=== PATIENT | male | born 1970 | race American Indian/Alaskan Native ===

== ENCOUNTER 2021-08-21 22:49 | Inpatient (IN) | payer OTHER ==
[2021-08-22] MEDS ORDERED: ONDANSETRON 4 MG/2 ML INJ IV ONE (00:53)
[2021-08-22] MEDS ORDERED: MORPHINE 4 MG/1 ML INJ IV ONE (00:53)
[2021-08-22] MEDS ORDERED: FAMOTIDINE 20 MG/2 ML INJ IV ONE (00:53)
[2021-08-22 01:06] LABS: Basophils % (Auto) 0.3 % (0.0-1.8); Eosinophils % (Auto) 0.1 % (0.0-4.3); Hematocrit 50.3 % (35.5-45.6); Hemoglobin 16.6 gm/dl (11.8-15.2); Lymphocytes # (Auto) 1.3 K/mm3 (1.2-5.4); Mean Corpuscular HGB Conc 33 % (32-34); Mean Corpuscular Volume 89 fl (84-94); Monocytes % (Auto) 7.3 % (0.0-7.3); Red Blood Count 5.65 M/mm3 (3.65-5.03); Red Cell Distribution Width 14.7 % (13.2-15.2)
[2021-08-22 01:21] LABS: Platelet Count 206 K/mm3 (140-440)
[2021-08-22 01:25] LABS: Bacteria,Urine 1+ /HPF (Negative); Bilirubin,Urine NEG (Negative); Blood,Urine NEG (Negative); Color,Urine Yellow (Yellow); Mucus,Urine 1+ /HPF; Urobilinogen,Urine < 2.0 mg/dL (<2.0); WBC,Urine < 1.0 /HPF (0.0-6.0)
[2021-08-22] MEDS ORDERED: SODIUM CHLORIDE 0.9% 1000 ML 1,000 ML IV ONE (01:29)
[2021-08-22 02:23] LABS: Alanine Aminotransferase 23 units/L (7-56); Albumin 4.4 g/dL (3.9-5); BUN/Creatinine Ratio 23; Blood Urea Nitrogen 18 mg/dL (9-20); Calcium 10.1 mg/dL (8.4-10.2); Hemolysis Index 37
[2021-08-22] MEDS ORDERED: diphenhydrAMINE 50 MG/ML VIAL IV ONE (02:23)
[2021-08-22] MEDS ORDERED: METOCLOPRAMIDE 10 MG/2 ML INJ IV ONE (02:23)
[2021-08-22] MEDS ORDERED: HYDROmorphone 1 MG/1 ML INJ IV ONE (02:23)
--- NOTE | 2021-08-22 03:57 | Cat Scan Report ---
CT ABDOMEN AND PELVIS WITH CONTRAST INDICATION / CLINICAL INFORMATION: abdominal pain. TECHNIQUE: Axial CT images were obtained through the abdomen and pelvis after 100 cc Omnipaque [address] scans at this location are performed using CT dose reduction for ALARA by means of automated exposure control. COMPARISON: None available. FINDINGS: LOWER CHEST: No significant abnormality of the imaged chest. LIVER: Subcentimeter hypodense lesion right hepatic lobe image #37 too small to further characterize. Liver otherwise unremarkable. GALLBLADDER: No significant abnormality. BILE DUCTS: No significant abnormality. SPLEEN: No significant abnormality. PANCREAS: No significant abnormality. ADRENALS: No significant abnormality. RIGHT KIDNEY / URETER: Multiple small right renal cysts. LEFT KIDNEY / URETER: Multiple left renal cysts. One to 2 mm nonobstructing stone lower pole left kid aravind not excluded. STOMACH / DUODENUM / SMALL BOWEL: Multiple small bowel loops are dilated and filled with fluid. Small bowel stool sign noted at the terminal ileum. Gradual diminution to normal caliber ileocecal valve i s present. No wall thickening and stratification is present. No inflammatory changes are demonstrated . COLON: Large callus decompressed. APPENDIX: No significant abnormality. PERITONEUM: Small amount of free fluid within the dependent pelvis. LYMPH NODES: No significant adenopathy. AORTA / ARTERIES: No significant abnormality. IVC / VEINS: No significant abnormality. URINARY BLADDER: No significant abnormality. REPRODUCTIVE ORGANS: No significant abnormality. ADDITIONAL ABDOMINAL/PELVIC FINDINGS: None. SKELETAL SYSTEM: No significant abnormality. IMPRESSION: 1. Multiple small bowel loops are borderline in size to minimally enlarged and filled with fluid with out evidence of wall thickening or inflammation. Small bowel stool sign noted within the distal/termi nal ileum also with no inflammatory changes or wall thickening. Overall appearance suggests at high-g rade partial obstruction although no true transition is identified and ileus could be considered. Signer Name: Chip Wilder II, MD Signed: 08/22/2021 3:52 AM Workstation Name: [id number]
--- NOTE | 2021-08-22 04:25 | Emergency Department Report ---
<JANE KING - Last Filed: 08/22/21 05:23> ED Abdominal Pain HPI - General Chief Complaint: Abdominal Pain Stated Complaint: ABD PAIN Source: patient Mode of arrival: Ambulatory Limitations: No Limitations - History of Present Illness Initial Comments: Patient is a 51-year-old -[place] male with no past medical history, no surgical history presents to the ED with complaint of acute onset persistent diffuse abdominal pain, worse in the lower abdomen with intractable nausea and vomiting for the last 24 hours, but worse in the last 6 hours. Patient states that the pain was initially mild and intermittent but in the last 12 hours the pain remained constant, persistent, and worsening. Patient also states that he has had multiple episodes of nausea and vomiting prior to arrival in the ED. Patient denies fever, chills, diarrhea, dysuria, urinary frequency and urgency, chest pain, shortness of breath, testicular pain, low back pain, hematuria, cough, headache or dizziness and syncope. MD Complaint: abdominal pain, other (Nausea and vomiting) -: Sudden, hour(s) (24) Location: LLQ, RLQ, suprapubic Radiation: LLQ, RLQ, suprapubic Migration to: no migration Severity scale (0 -10): 8 Quality: cramping, sharp Consistency: constant Improves With: nothing Worsens With: nothing Associated Symptoms: denies other symptoms, nausea, vomiting, anorexia. denies: diarrhea, fever, constipation, dysuria, hematemesis, hematochezia, melena, hematuria, syncope, other - Related Data Home Medications Medication Instructions Recorded Confirmed Last Taken No Known Home Medications [No 08/22/21 08/22/21 Unknown Reported Home Medications] Allergies Allergy/AdvReac Type Severity Reaction Status Date / Time No Known Allergies Allergy Verified 08/22/21 06:17 ED Review of Systems Constitutional: denies: chills, fever Eyes: denies: eye pain, eye discharge, vision change ENT: denies: ear pain, throat pain Respiratory: denies: cough, shortness of breath, wheezing Cardiovascular: denies: chest pain, palpitations Endocrine: no symptoms reported Gastrointestinal: abdominal pain, nausea, vomiting. denies: diarrhea Genitourinary: denies: urgency, dysuria Musculoskeletal: denies: back pain, joint swelling, arthralgia Skin: denies: rash, lesions Neurological: denies: headache, weakness, paresthesias Psychiatric: denies: anxiety, depression Hematological/Lymphatic: denies: easy bleeding, easy bruising ED Past Medical Hx - Past Medical History Previous Medical History?: No - Surgical History Past Surgical History?: Yes Additional Surgical History: Vericose veins removed - Social History Smoking Status: Never Smoker Substance Use Type: Marijuana - Medications Home Medications: Home Medications Medication Instructions Recorded Confirmed Last Taken Type No Known Home Medications [No 08/22/21 08/22/21 Unknown History Reported Home Medications] ED Physical Exam - General Limitations: No Limitations General appearance: alert, in no apparent distress - Head Head exam: Present: atraumatic, normocephalic, normal inspection - Eye Eye exam: Present: normal appearance, PERRL, EOMI Pupils: Present: normal accommodation - ENT ENT exam: Present: normal exam, normal orophraynx, mucous membranes moist, TM's normal bilaterally, normal external ear exam - Neck Neck exam: Present: normal inspection, full ROM. Absent: tenderness - Respiratory Respiratory exam: Present: normal lung sounds bilaterally. Absent: respiratory distress, wheezes, rales, chest wall tenderness, accessory muscle use, decreased breath sounds - Cardiovascular Cardiovascular Exam: Present: regular rate, normal rhythm, normal heart sounds. Absent: systolic murmur, diastolic murmur, rubs, gallop - GI/Abdominal GI/Abdominal exam: Present: soft, distended, tenderness (Palpable diffuse rebound lower abdominal tenderness with guarding, hyperactive bowel sounds and moderate distention in the upper abdomen with tympany.), guarding, rebound, rigid, normal bowel sounds, hyperactive bowel sounds - Extremities Exam Extremities exam: Present: normal inspection, full ROM, normal capillary refill. Absent: tenderness - Back Exam Back exam: Present: normal inspection, full ROM. Absent: tenderness, CVA tenderness (R), CVA tenderness (L), muscle spasm, paraspinal tenderness, vertebral tenderness - Neurological Exam Neurological exam: Present: alert, oriented X3, CN II-XII intact, normal gait, reflexes normal - Psychiatric Psychiatric exam: Present: normal affect, normal mood, anxious - Skin Skin exam: Present: warm, dry, intact, normal color. Absent: rash ED Medical Decision Making - Lab Data Result diagrams: 08/22/21 00:03 08/22/21 00:03 - Radiology Data Radiology results: report reviewed, image reviewed [facility] [address] [place] [address] Cat Scan Report Signed Patient: ORLIN REID MR#: [id number] : 1970 Acct:[id number] Age/Sex: 51 / M ADM Date: 08/21/21 Loc: ED Attending Dr: Ordering Physician: ANDRAE DAWSON Date of Service: 08/22/21 Procedure(s): CT abdomen pelvis w con Accession Number(s): [id number] cc: ANDRAE DAWSON CT ABDOMEN AND PELVIS WITH CONTRAST INDICATION / CLINICAL INFORMATION: abdominal pain. TECHNIQUE: Axial CT images were obtained through the abdomen and pelvis after 100 cc Omnipaque [address] scans at this location are performed using CT dose reduction for ALARA by means of automated exposure control. COMPARISON: None available. FINDINGS: LOWER CHEST: No significant abnormality of the imaged chest. LIVER: Subcentimeter hypodense lesion right hepatic lobe image #37 too small to further characterize. Liver otherwise unremarkable. GALLBLADDER: No significant abnormality. BILE DUCTS: No significant abnormality. SPLEEN: No significant abnormality. PANCREAS: No significant abnormality. ADRENALS: No significant abnormality. RIGHT KIDNEY / URETER: Multiple small right renal cysts. LEFT KIDNEY / URETER: Multiple left renal cysts. One to 2 mm nonobstructing stone lower pole left kidney not excluded. STOMACH / DUODENUM / SMALL BOWEL: Multiple small bowel loops are dilated and filled with fluid. Small bowel stool sign noted at the terminal ileum. Gradual diminution to normal caliber ileocecal valve is present. No wall thickening and stratification is present. No inflammatory changes are demonstrated. COLON: Large callus decompressed. APPENDIX: No significant abnormality. PERITONEUM: Small amount of free fluid within the dependent pelvis. LYMPH NODES: No significant adenopathy. AORTA / ARTERIES: No significant abnormality. IVC / VEINS: No significant abnormality. URINARY BLADDER: No significant abnormality. REPRODUCTIVE ORGANS: No significant abnormality. ADDITIONAL ABDOMINAL/PELVIC FINDINGS: None. SKELETAL SYSTEM: No significant abnormality. IMPRESSION: 1. Multiple small bowel loops are borderline in size to minimally enlarged and filled with fluid without evidence of wall thickening or inflammation. Small bowel stool sign noted within the distal/terminal ileum also with no inflammatory changes or wall thickening. Overall appearance suggests at high-grade partial obstruction although no true transition is identified and ileus could be considered. Signer Name: Raymond Abel II, MD Signed: 08/22/2021 3:52 AM Workstation Name: [id number] Transcribed By: MILAD Dictated By: RAYMOND ABEL II, MD Electronically Authenticated By: RAYMOND ABEL II, MD Signed Date/Time: 08/22/21351 DD/ 6 TD/TT: Print Cancel - Medical Decision Making This is a 51-year-old -[place] male with no past medical history, no surgical history presents to the ED with complaint of acute onset persistent diffuse abdominal pain, worse in the lower abdomen with intractable nausea and vomiting for the last 24 hours, but worse in the last 6 hours. Patient states that the pain was initially mild and intermittent but in the last 12 hours the pain remained constant, persistent, and worsening. Patient also states that he has had multiple episodes of nausea and vomiting prior to arrival in the ED. in the ED, patient is alert and oriented x3 and is not in any distress but appears to be in significant pain, patient crying during the physical exam and guarding his abdomen. Patient was treated with pain medications in the ED, also given antiemetics and normal saline 1 L IV bolus x1. Lab test results were reviewed and showed acute leukocytosis of 14,200 and lactic acid of 3.10. The rest of the lab test results are all nonactionable. The abdomen pelvis CT scan with contrast showed multiple small bowel loops are borderline in size to minimally enlarged and filled with fluid without evidence of wall thickening or inflammation. Small bowel stool sign noted within the distal/terminal ileum also with no inflammatory changes or wall thickening. Overall appearance suggests at high-grade partial obstruction although no true transition is identified and ileus could be considered. Patient case was discussed with the ED attending physician Dr. Smith who also evaluated the patient and agree with the plan of care. The patient care was therefore transferred to Dr. Smith who shall review all the lab test results, imaging report and disposition the patient accordingly. - Differential Diagnosis appendicitis; SBO; Kidney stones; Pancreatitis; Cholelithiasis; UTI ED Disposition Clinical Impression: Abdominal pain in male, Nausea and vomiting in adult patient, Small bowel obstruction, Abdominal pain, Partial small bowel obstruction Disposition: ADMITTED INPATIENT Is pt being admited?: Yes Condition: Stable Time of Disposition: 04:28 <COLLEEN SMITH - Last Filed: 08/23/21 05:06> ED Review of Systems ROS: Stated complaint: ABD PAIN Other details as noted in HPI ED Course Vital Signs 08/21/21 08/22/21 08/22/21 23:20 02:11 03:46 Temperature 98.1 F Pulse Rate 75 60 61 Respiratory 16 13 20 Rate Blood Pressure Blood Pressure 126/76 142/83 [Right] O2 Sat by Pulse 100 94 98 Oximetry 08/22/21 08/22/21 08/22/21 03:51 04:00 04:16 Temperature Pulse Rate 64 70 65 Respiratory 21 22 22 Rate Blood Pressure 131/89 131/89 Blood Pressure 131/89 [Right] O2 Sat by Pulse 98 96 96 Oximetry 08/22/21 08/22/21 08/22/21 04:30 04:46 05:00 Temperature Pulse Rate 64 64 68 Respiratory 19 20 18 Rate Blood Pressure 131/89 131/89 131/89 Blood Pressure [Right] O2 Sat by Pulse 97 95 97 Oximetry 08/22/21 08/22/21 08/22/21 05:16 05:30 05:46 Temperature Pulse Rate 81 67 66 Respiratory 21 21 23 Rate Blood Pressure 141/89 141/89 141/89 Blood Pressure [Right] O2 Sat by Pulse 95 96 96 Oximetry 08/22/21 08/22/21 08/22/21 05:47 06:00 06:16 Temperature Pulse Rate 64 71 69 Respiratory 20 21 22 Rate Blood Pressure 141/89 119/69 Blood Pressure 141/89 [Right] O2 Sat by Pulse 96 95 96 Oximetry 08/22/21 08/22/21 08/22/21 06:30 06:46 07:00 Temperature Pulse Rate 73 63 63 Respiratory 20 24 26 H Rate Blood Pressure 119/69 119/69 119/69 Blood Pressure [Right] O2 Sat by Pulse 97 96 96 Oximetry 08/22/21 08/22/21 08/22/21 07:16 07:30 07:46 Temperature Pulse Rate 62 63 69 Respiratory 25 H 20 20 Rate Blood Pressure 143/91 143/91 119/69 Blood Pressure [Right] O2 Sat by Pulse 96 96 95 Oximetry 08/22/21 08/22/21 08/22/21 08:01 08:15 08:31 Temperature Pulse Rate 62 59 L 60 Respiratory 23 21 16 Rate Blood Pressure 143/91 143/91 143/91 Blood Pressure [Right] O2 Sat by Pulse 95 98 94 Oximetry 08/22/21 08/22/21 08/22/21 08:41 08:45 09:01 Temperature Pulse Rate 54 L 55 L Respiratory 20 19 18 Rate Blood Pressure 143/91 130/90 Blood Pressure [Right] O2 Sat by Pulse 99 97 97 Oximetry 08/22/21 08/22/21 08/22/21 09:15 09:31 09:41 Temperature Pulse Rate 59 L 58 L 61 Respiratory 18 21 20 Rate Blood Pressure 130/90 130/90 130/90 Blood Pressure [Right] O2 Sat by Pulse 95 96 97 Oximetry 08/22/21 08/22/21 09:51 10:00 Temperature Pulse Rate 62 69 Respiratory 20 23 Rate Blood Pressure 130/90 134/92 Blood Pressure [Right] O2 Sat by Pulse 96 96 Oximetry ED Medical Decision Making - Lab Data Result diagrams: 08/22/21 00:03 08/22/21 00:03 - Medical Decision Making This patient was also seen by me. He stated that he felt somewhat better with some improvement of his abdominal pain. Palpation reveals residual abdominal pain without evidence of rebound. His white count was noted to be elevated with a shift. The CT scan of his abdomen per the radiologist reading was suggestive of a high-grade partial small bowel obstruction. I spoke with the on-call surgeon who agreed to see the patient in consultation after being admitted to the hospitalist service. The patient and his significant other were advised of this plan. And they agreed. Critical care attestation.: If time is entered above; I have spent that time in minutes in the direct care of this critically ill patient, excluding procedure time.
[2021-08-22] MEDS ORDERED: HYDROmorphone 1 MG/1 ML INJ IV PRN (06:12)
[2021-08-22] MEDS ORDERED: ALBUTEROL 2.5 MG/3 ML NEBU IH PRN (06:12)
[2021-08-22] MEDS ORDERED: ONDANSETRON 4 MG/2 ML INJ IV PRN (06:12)
[2021-08-22] MEDS ORDERED: ACETAMINOPHEN 325 MG TAB PO PRN (06:12)
--- NOTE | 2021-08-22 06:20 | History and Physical Report ---
History of Present Illness Date of examination: 08/22/21 Date of admission: 08/22/21 Chief complaint: Abdominal pain Nausea vomiting History of present illness: 51-year-old -[place] male with no significant past medical history was brought to the emergency room because of acute onset persistent diffuse abdominal pain, worse in the lower abdomen with intractable nausea and vomiting for the last 24 hours, but worse in the last 6 hours. Patient states that the pain was initially mild and intermittent but in the last 12 hours the pain remained constant, persistent, and worsening. Patient also states that he has had multiple episodes of nausea and vomiting prior to arrival in the ED. Patient denies fever, chills, diarrhea, dysuria, urinary frequency and urgency, chest pain, shortness of breath, testicular pain, low back pain, hematuria, cough, headache or dizziness and syncope. In the emergency room CT scan of the abdomen showed high-grade partial obstruction although no true transition is identified an ileus could be considered. Also patient WBC is 14.2 and lactic acid 3.10. So going to admit the patient we will put the patient on IV fluid NG suction and antibiotic surgery will see the patient in consultation Past History Past Surgical History: Other (Vericose veins removed) Social history: other (Never a smoker mom marijuana abuse) Family history: no significant family history Medications and Allergies Allergies Allergy/AdvReac Type Severity Reaction Status Date / Time No Known Allergies Allergy Verified 08/22/21 06:17 Review of Systems All systems: negative Gastrointestinal: abdominal pain, nausea, vomiting Exam - Constitutional Vitals: Temp Pulse Resp BP Pulse Ox 98.1 F 64 20 141/89 96 08/21/21 23:20 08/22/21 05:47 08/22/21 05:47 08/22/21 05:47 08/22/21 05:47 General appearance: Present: no acute distress, well-nourished - EENT Eyes: Present: PERRL ENT: hearing intact, clear oral mucosa - Neck Neck: Present: supple, normal ROM - Respiratory Respiratory effort: normal Respiratory: bilateral: diminished - Cardiovascular Heart Sounds: Present: S1 & S2. Absent: rub, click - Extremities Extremities: pulses symmetrical, No edema Peripheral Pulses: within normal limits - Abdominal General gastrointestinal: Present: soft, non-tender, non-distended, normal bowel sounds Male genitourinary: Present: normal - Integumentary Integumentary: Present: clear, warm, dry - Musculoskeletal Musculoskeletal: gait normal, strength equal bilaterally - Psychiatric Psychiatric: appropriate mood/affect, intact judgment & insight - Neurologic Neurologic: CNII-XII intact, moves all extremities Results - Labs CBC & Chem 7: 08/22/21 00:03 08/22/21 00:03 Labs: Laboratory Last Values WBC 14.2 K/mm3 (4.5-11.0) H 08/22/21 00:03 RBC 5.65 M/mm3 (3.65-5.03) H 08/22/21 00:03 Hgb 16.6 gm/dl (11.8-15.2) H 08/22/21 00:03 Hct 50.3 % (35.5-45.6) H 08/22/21 00:03 MCV 89 fl (84-94) 08/22/21 00:03 MCH 29 pg (28-32) 08/22/21 00:03 MCHC 33 % (32-34) 08/22/21 00:03 RDW 14.7 % (13.2-15.2) 08/22/21 00:03 Plt Count 206 K/mm3 (140-440) 08/22/21 00:03 Lymph % (Auto) 9.0 % (13.4-35.0) L 08/22/21 00:03 Rowan % (Auto) 7.3 % (0.0-7.3) 08/22/21 00:03 Eos % (Auto) 0.1 % (0.0-4.3) 08/22/21 00:03 Baso % (Auto) 0.3 % (0.0-1.8) 08/22/21 00:03 Lymph # (Auto) 1.3 K/mm3 (1.2-5.4) 08/22/21 00:03 Rowan # (Auto) 1.0 K/mm3 (0.0-0.8) H 08/22/21 00:03 Eos # (Auto) 0.0 K/mm3 (0.0-0.4) 08/22/21 00:03 Baso # (Auto) 0.0 K/mm3 (0.0-0.1) 08/22/21 00:03 Seg Neutrophils % 83.3 % (40.0-70.0) H 08/22/21 00:03 Seg Neutrophils # 11.8 K/mm3 (1.8-7.7) H 08/22/21 00:03 Sodium 140 mmol/L (137-145) 08/22/21 00:03 Potassium 3.7 mmol/L (3.6-5.0) 08/22/21 00:03 Chloride 101.8 mmol/L (98-107) 08/22/21 00:03 Carbon Dioxide 23 mmol/L (22-30) 08/22/21 00:03 Anion Gap 19 mmol/L 08/22/21 00:03 BUN 18 mg/dL (9-20) 08/22/21 00:03 Creatinine 0.8 mg/dL (0.8-1.3) 08/22/21 00:03 Estimated GFR > 60 ml/min 08/22/21 00:03 BUN/Creatinine Ratio 23 % 08/22/21 00:03 Glucose 136 mg/dL (75-100) H 08/22/21 00:03 Lactic Acid 2.20 mmol/L (0.7-2.0) H* 08/22/21 04:08 Calcium 10.1 mg/dL (8.4-10.2) 08/22/21 00:03 Total Bilirubin 0.70 mg/dL (0.1-1.2) 08/22/21 00:03 AST 24 units/L (5-40) 08/22/21 00:03 ALT 23 units/L (7-56) 08/22/21 00:03 Alkaline Phosphatase 87 units/L (35-129) 08/22/21 00:03 Total Protein 8.0 g/dL (6.3-8.2) 08/22/21 00:03 Albumin 4.4 g/dL (3.9-5) 08/22/21 00:03 Albumin/Globulin Ratio 1.2 % 08/22/21 00:03 Lipase 15 units/L (13-60) 08/22/21 01:29 Urine Color Yellow (Yellow) 08/22/21 Unknown Urine Turbidity Clear (Clear) 08/22/21 Unknown Urine pH 9.0 (5.0-7.0) H 08/22/21 Unknown Ur Specific [place] 1.027 (1.003-1.030) 08/22/21 Unknown Urine Protein 100 mg/dl mg/dL (Negative) 08/22/21 Unknown Urine Glucose (UA) Neg mg/dL (Negative) 08/22/21 Unknown Urine Ketones 20 mg/dL (Negative) 08/22/21 Unknown Urine Blood Neg (Negative) 08/22/21 Unknown Urine Nitrite Neg (Negative) 08/22/21 Unknown Urine Bilirubin Neg (Negative) 08/22/21 Unknown Urine Urobilinogen < 2.0 mg/dL (<2.0) 08/22/21 Unknown Ur Leukocyte Esterase Neg (Negative) 08/22/21 Unknown Urine WBC (Auto) < 1.0 /HPF (0.0-6.0) 08/22/21 Unknown Urine RBC (Auto) 27.0 /HPF (0.0-6.0) 08/22/21 Unknown U Epithel Cells (Auto) < 1.0 /HPF (0-13.0) 08/22/21 Unknown Urine Bacteria (Auto) 1+ /HPF (Negative) 08/22/21 Unknown Urine Mucus 1+ /HPF 08/22/21 Unknown - Imaging and Cardiology CT scan - abdomen: report reviewed Assessment and Plan VTE prophylaxis?: Chemical Plan of care discussed with patient/family: Yes - Patient Problems (1) Small bowel obstruction Current Visit: Yes Status: Acute Plan to address problem: Admit the patient to the medical floor. NPO. D5 half-normal saline at the rate of 100 cc/h. NG suction. Pepcid 20 mg IV every 12 hours. Surgery evaluation. (2) Lactic acidosis Current Visit: Yes Status: Acute Plan to address problem: D5 half-normal saline at the rate of 100 cc/h. Zosyn 4.5 g IV every 8 hours. Recheck CBC and lactic acid (3) Abdominal pain in male Current Visit: Yes Status: Acute Plan to address problem: Pepcid 20 mg IV every 12 hours. Morphine 2 mg IV every 4 hours as needed. Surgery evaluation (4) Nausea and vomiting in adult patient Current Visit: Yes Status: Acute Plan to address problem: n.p.o. D5 half-normal saline at the rate of 100 cc/h. Zofran 4 mg IV every 6 hours as needed. Pepcid 20 mg IV every 12 hours (5) DVT prophylaxis Current Visit: Yes Status: Acute Plan to address problem: Heparin 5000 units subcu every 12 hours for DVT prophylaxis. Pepcid 20 mg IV every 12 hours for GI prophylaxis. Patient is a full code
[2021-08-22] MEDS: PIPERACIL/TAZOBACTA 4.5/NS 100 4.5 GM/100 ML VIAL IV SCH ×2 (07:35→22:29)
[2021-08-22] MEDS ORDERED: IPRATROPIUM/ALBUTEROL SULFATE 3 ML AMPUL.NEB IH SCH (08:00)
[2021-08-22] MEDS: MORPHINE 2 MG/1 ML INJ IV PRN ×3 (08:19→20:05)
--- NOTE | 2021-08-22 10:21 | Event Note ---
Date: 08/22/21 51-year-old -[place] male patient with no past medical history was admitted through emergency room with diffuse abdominal pain with intractable nausea vomiting of 1 day duration initial work-up in the emergency room with CT scan of the abdomen show high-grade partial obstruction and leukocytosis and lactic acidosis patient was admitted placed n.p.o. status surgery consulted. Urinalysis consistent with UTI, on Zosyn On examination patient feels better, no new complaints Wants to eat, vital signs reviewed Awaiting surgery evaluation and recommendations. Continue current management We will closely monitor
[2021-08-22] MEDS: D5W/0.45% NACL 1,000 ML IV SCH (14:06)
--- NOTE | 2021-08-22 14:06 | XRay Report ---
ABDOMEN AP SUPINE 1330 INDICATION: Follow-up partial obstruction COMPARISON: CT abdomen and pelvis 08/22/2021 0316 FINDINGS: Gas is seen through much of the colon. Mild small bowel dilatation appears less obvious logan n on CT. Calcifications in the pelvis appear to be vascular. Signer Name: Miguel Gonzalez MD Signed: 08/22/2021 2:02 PM Workstation Name: [id number]
[2021-08-22] MEDS: FAMOTIDINE 20 MG/2 ML INJ IV SCH ×2 (14:07→22:31)
[2021-08-22] MEDS: HEPARIN 5,000 UNIT/1 ML VIAL SUB-Q SCH ×2 (14:07→22:31)
--- NOTE | 2021-08-22 18:53 | Consultation ---
History of Present Illness Consult date: 08/22/21 Reason for consult: abdominal pain - History of present illness History of present illness: 51 yo male with 24 hour h/o crampy, lower abdominal pain, nausea and vomiting. No prior abd surgery or h/o hernias. No melena, hematochezia or diarrhea. He has been "mildly" constipated. Since admission, his abdominal pain, nausea and vomiting have improved and he has had several loose bm's. Past History Past Surgical History: Other (Vericose veins removed) Social history: other (Never a smoker mom marijuana abuse) Family history: no significant family history Medications and Allergies Allergies Allergy/AdvReac Type Severity Reaction Status Date / Time No Known Allergies Allergy Verified 08/22/21 06:17 Active Meds: Active Medications Acetaminophen (Acetaminophen 325 Mg Tab) 650 mg PO Q4H PRN PRN Reason: Pain MILD(1-3)/Fever >100.5/MCLEOD Albuterol (Albuterol 2.5 Mg/3 Ml Nebu) 2.5 mg IH Q3HRT PRN PRN Reason: Shortness Of Breath Famotidine (Famotidine 20 Mg/2 Ml Inj) 20 mg IV BID GLENIS Last Admin: 08/22/21 14:07 Dose: 20 mg Heparin Sodium (Porcine) (Heparin 5,000 Unit/1 Ml Vial) 5,000 unit SUB-Q Q12HR GLENIS Last Admin: 08/22/21 14:07 Dose: 5,000 unit Hydromorphone HCl (Hydromorphone 1 Mg/1 Ml Inj) 0.5 mg IV Q3H PRN PRN Reason: Pain , Severe (7-10) Dextrose/Sodium Chloride (D5/0.45ns) 1,000 mls @ 100 mls/hr IV DIRECT GLENSI Last Admin: 08/22/21 14:06 Dose: 100 mls/hr Piperacillin Sod/Tazobactam Sod (Zosyn/Ns 4.5gm/100ml) 4.5 gm in 100 mls @ 200 mls/hr IV Q8H GLENIS; Protocol Last Admin: 08/22/21 07:35 Dose: 200 mls/hr Morphine Sulfate (Morphine 2 Mg/1 Ml Inj) 2 mg IV Q4H PRN PRN Reason: Pain, Moderate (4-6) Last Admin: 08/22/21 14:27 Dose: 2 mg Ondansetron HCl (Ondansetron 4 Mg/2 Ml Inj) 4 mg IV Q8H PRN PRN Reason: Nausea And Vomiting Sodium Chloride (Sodium Chloride 0.9% 10 Ml Flush Syringe) 10 ml IV BID GLENIS Last Admin: 08/22/21 14:07 Dose: 10 ml Sodium Chloride (Sodium Chloride 0.9% 10 Ml Flush Syringe) 10 ml IV PRN PRN PRN Reason: LINE FLUSH Review of Systems All systems: negative (none) Exam Vital Signs Temp Pulse Resp BP Pulse Ox 98.1 F 75 16 126/76 100 08/21/21 23:20 08/21/21 23:20 08/21/21 23:20 08/21/21 23:20 08/21/21 23:20 - General physical appearance Positive: well developed, well nourished, no distress - Eyes Positive: PERRL, normal occular movement - ENT Positive: normal pinna, normal nares, normal mucosa, no hearing loss, no congestion - Neck Positive: no masses, no bruits, trachea midline, no venous distension - Respiratory Positive: normal expansion, normal respiratory effort, clear to auscultation - Cardiovascular Rhythm: regular Heart Sounds: Present: S1 & S2. Absent: rub, click - Extremities Extremities: no ischemia, pulses symmetrical, No edema - Breasts Breasts: normal, no mass, no skin changes - Abdomen Abdomen: Present: soft, bowel sounds normal. Absent: tender, distended Hernia: none - Genitourinary Male Genitourinary: normal Female Genitourinary: normal - Integumentary no rash, no growths, no abnormal pigmentation - Neurologic Neurologic: alert and oriented to time, place and person, motor strength and sensation are grossly intact - Musculoskeletal normal gait, normal posture - Psychiatric Psychiatric: appropriate mood/affect, intact judgment & insight Results - Labs 08/22/21 00:03 08/22/21 00:03 Abnormal lab results 08/22/21 08/22/21 08/22/21 Range/Units 00:03 00:03 01:37 WBC 14.2 H (4.5-11.0) K/mm3 RBC 5.65 H (3.65-5.03) M/mm3 Hgb 16.6 H (11.8-15.2) gm/dl Hct 50.3 H (35.5-45.6) % Lymph % (Auto) 9.0 L (13.4-35.0) % [place] # (Auto) 1.0 H (0.0-0.8) K/mm3 Seg Neutrophils % 83.3 H (40.0-70.0) % Seg Neutrophils # 11.8 H (1.8-7.7) K/mm3 Glucose 136 H (75-100) mg/dL Lactic Acid 3.10 H* (0.7-2.0) mmol/L Urine pH (5.0-7.0) 08/22/21 08/22/21 Range/Units 04:08 Unknown WBC (4.5-11.0) K/mm3 RBC (3.65-5.03) M/mm3 Hgb (11.8-15.2) gm/dl Hct (35.5-45.6) % Lymph % (Auto) (13.4-35.0) % [place] # (Auto) (0.0-0.8) K/mm3 Seg Neutrophils % (40.0-70.0) % Seg Neutrophils # (1.8-7.7) K/mm3 Glucose (75-100) mg/dL Lactic Acid 2.20 H* (0.7-2.0) mmol/L Urine pH 9.0 H (5.0-7.0) Diabetes panel 08/22/21 Range/Units 00:03 Sodium 140 (137-145) mmol/L Potassium 3.7 (3.6-5.0) mmol/L Chloride 101.8 (98-107) mmol/L Carbon Dioxide 23 (22-30) mmol/L BUN 18 (9-20) mg/dL Creatinine 0.8 (0.8-1.3) mg/dL Glucose 136 H (75-100) mg/dL Calcium 10.1 (8.4-10.2) mg/dL AST 24 (5-40) units/L ALT 23 (7-56) units/L Alkaline Phosphatase 87 (35-129) units/L Total Protein 8.0 (6.3-8.2) g/dL Albumin 4.4 (3.9-5) g/dL Calcium panel 08/22/21 Range/Units 00:03 Calcium 10.1 (8.4-10.2) mg/dL Albumin 4.4 (3.9-5) g/dL Pituitary panel 08/22/21 Range/Units 00:03 Sodium 140 (137-145) mmol/L Potassium 3.7 (3.6-5.0) mmol/L Chloride 101.8 (98-107) mmol/L Carbon Dioxide 23 (22-30) mmol/L BUN 18 (9-20) mg/dL Creatinine 0.8 (0.8-1.3) mg/dL Glucose 136 H (75-100) mg/dL Calcium 10.1 (8.4-10.2) mg/dL Adrenal panel 08/22/21 Range/Units 00:03 Sodium 140 (137-145) mmol/L Potassium 3.7 (3.6-5.0) mmol/L Chloride 101.8 (98-107) mmol/L Carbon Dioxide 23 (22-30) mmol/L BUN 18 (9-20) mg/dL Creatinine 0.8 (0.8-1.3) mg/dL Glucose 136 H (75-100) mg/dL Calcium 10.1 (8.4-10.2) mg/dL Total Bilirubin 0.70 (0.1-1.2) mg/dL AST 24 (5-40) units/L ALT 23 (7-56) units/L Alkaline Phosphatase 87 (35-129) units/L Total Protein 8.0 (6.3-8.2) g/dL Albumin 4.4 (3.9-5) g/dL - Imaging CT scan - abdomen: report reviewed CT scan - pelvis: report reviewed Assessment and Plan - Patient Problems (1) Paralytic ileus Current Visit: Yes Status: Acute Plan to address problem: 1) Continue NPO 2) Continue IVF 3) AXR and CBC in the am
[2021-08-23] MEDS: D5W/0.45% NACL 1,000 ML IV SCH ×2 (05:53→15:19)
--- NOTE | 2021-08-23 07:42 | Progress Note ---
Assessment and Plan Assessment and plan: VTE prophylaxis?: Chemical Plan of care discussed with patient/family: Yes -- Small bowel obstruction Current Visit: Yes Status: Acute Continue n.p.o. status IV fluids, Surgery following, X-ray abdomen today reviewed Continues to have persistent small bowel obstruction mildly improved since yesterday --Lactic acidosis; present on admission Current Visit: Yes Status: Acute Resolved, continue supportive care, --Urinary tract infection; present on admission Current Visit: Yes Status: Acute Abnormal UA, follow urine cultures Empiric antibiotics Zosyn, -- Abdominal pain in male Current Visit: Yes Status: Acute Due to small bowel obstruction, supportive care Surgery following --Intractable nausea and vomiting in adult patient Current Visit: Yes Status: Acute Due to small bowel obstruction, antiemetics, IV fluids N.p.o. status, surgery following, continue Pepcid --Obesity:BMI 31.2; Current Visit: Yes Status: Chronic Advised diet modification exercise as tolerated and weight reduction When medically stable -- DVT prophylaxis Current Visit: Yes Status: Acute Subcu heparin We will closely monitor the patient and adjust management as needed Plan of care reviewed with the patient and his nurse Follow surgery recommendations for today History Interval history: I have seen and examined the patient at the bedside Patient's chart and medications reviewed Patient feels better Patient had flatus and bowel movement N.p.o. status Hospitalist Physical - Constitutional Vitals: Temp Pulse Resp BP Pulse Ox 97.7 F 61 16 129/85 99 08/23/21 04:40 08/23/21 04:40 08/23/21 04:40 08/23/21 04:40 08/23/21 04:40 General appearance: Present: no acute distress, well-nourished - EENT Eyes: Present: PERRL, EOM intact - Neck Neck: Present: supple, normal ROM - Respiratory Respiratory effort: normal Respiratory: bilateral: diminished, negative: rales, rhonchi, wheezing - Cardiovascular Rhythm: regular Heart Sounds: Present: S1 & S2 - Extremities Extremities: no ischemia, No edema - Abdominal General gastrointestinal: soft, non-tender, non-distended, normal bowel sounds - Integumentary Integumentary: Present: clear, warm - Psychiatric Psychiatric: appropriate mood/affect, cooperative - Neurologic Neurologic: CNII-XII intact, moves all extremities Results - Labs CBC & Chem 7: 08/23/21 06:51 08/23/21 06:51 Labs: Laboratory Last Values WBC 14.2 K/mm3 (4.5-11.0) H 08/22/21 00:03 RBC 5.65 M/mm3 (3.65-5.03) H 08/22/21 00:03 Hgb 16.6 gm/dl (11.8-15.2) H 08/22/21 00:03 Hct 50.3 % (35.5-45.6) H 08/22/21 00:03 MCV 89 fl (84-94) 08/22/21 00:03 MCH 29 pg (28-32) 08/22/21 00:03 MCHC 33 % (32-34) 08/22/21 00:03 RDW 14.7 % (13.2-15.2) 08/22/21 00:03 Plt Count 206 K/mm3 (140-440) 08/22/21 00:03 Lymph % (Auto) 9.0 % (13.4-35.0) L 08/22/21 00:03 [place] % (Auto) 7.3 % (0.0-7.3) 08/22/21 00:03 Eos % (Auto) 0.1 % (0.0-4.3) 08/22/21 00:03 Baso % (Auto) 0.3 % (0.0-1.8) 08/22/21 00:03 Lymph # (Auto) 1.3 K/mm3 (1.2-5.4) 08/22/21 00:03 [place] # (Auto) 1.0 K/mm3 (0.0-0.8) H 08/22/21 00:03 Eos # (Auto) 0.0 K/mm3 (0.0-0.4) 08/22/21 00:03 Baso # (Auto) 0.0 K/mm3 (0.0-0.1) 08/22/21 00:03 Seg Neutrophils % 83.3 % (40.0-70.0) H 08/22/21 00:03 Seg Neutrophils # 11.8 K/mm3 (1.8-7.7) H 08/22/21 00:03 Sodium 140 mmol/L (137-145) 08/22/21 00:03 Potassium 3.7 mmol/L (3.6-5.0) 08/22/21 00:03 Chloride 101.8 mmol/L (98-107) 08/22/21 00:03 Carbon Dioxide 23 mmol/L (22-30) 08/22/21 00:03 Anion Gap 19 mmol/L 08/22/21 00:03 BUN 18 mg/dL (9-20) 08/22/21 00:03 Creatinine 0.8 mg/dL (0.8-1.3) 08/22/21 00:03 Estimated GFR > 60 ml/min 08/22/21 00:03 BUN/Creatinine Ratio 23 % 08/22/21 00:03 Glucose 136 mg/dL (75-100) H 08/22/21 00:03 Lactic Acid 1.00 mmol/L (0.7-2.0) 08/22/21 06:27 Calcium 10.1 mg/dL (8.4-10.2) 08/22/21 00:03 Total Bilirubin 0.70 mg/dL (0.1-1.2) 08/22/21 00:03 AST 24 units/L (5-40) 08/22/21 00:03 ALT 23 units/L (7-56) 08/22/21 00:03 Alkaline Phosphatase 87 units/L (35-129) 08/22/21 00:03 Total Protein 8.0 g/dL (6.3-8.2) 08/22/21 00:03 Albumin 4.4 g/dL (3.9-5) 08/22/21 00:03 Albumin/Globulin Ratio 1.2 % 08/22/21 00:03 Lipase 15 units/L (13-60) 08/22/21 01:29 Urine Color Yellow (Yellow) 08/22/21 Unknown Urine Turbidity Clear (Clear) 08/22/21 Unknown Urine pH 9.0 (5.0-7.0) H 08/22/21 Unknown Ur Specific [place] 1.027 (1.003-1.030) 08/22/21 Unknown Urine Protein 100 mg/dl mg/dL (Negative) 08/22/21 Unknown Urine Glucose (UA) Neg mg/dL (Negative) 08/22/21 Unknown Urine Ketones 20 mg/dL (Negative) 08/22/21 Unknown Urine Blood Neg (Negative) 08/22/21 Unknown Urine Nitrite Neg (Negative) 08/22/21 Unknown Urine Bilirubin Neg (Negative) 08/22/21 Unknown Urine Urobilinogen < 2.0 mg/dL (<2.0) 08/22/21 Unknown Ur Leukocyte Esterase Neg (Negative) 08/22/21 Unknown Urine WBC (Auto) < 1.0 /HPF (0.0-6.0) 08/22/21 Unknown Urine RBC (Auto) 27.0 /HPF (0.0-6.0) 08/22/21 Unknown U Epithel Cells (Auto) < 1.0 /HPF (0-13.0) 08/22/21 Unknown Urine Bacteria (Auto) 1+ /HPF (Negative) 08/22/21 Unknown Urine Mucus 1+ /HPF 08/22/21 Unknown Microbiology: Microbiology 08/22/21 01:37 Peripheral/Venous Blood Culture - Preliminary Culture in Progress 08/22/21 01:37 Peripheral/Venous Blood Culture - Preliminary Culture in Progress Nguyễn/IV: Voiding Method Toilet Active Medications - Current Medications Current Medications: Generic Name Dose Route Start Last Admin Trade Name Freq PRN Reason Stop Dose Admin Acetaminophen 650 mg 08/22/21 06:12 Acetaminophen 325 Mg Tab PO Q4H PRN Pain MILD(1-3)/Fever >100.5/MCLEOD Albuterol 2.5 mg 08/22/21 06:12 Albuterol 2.5 Mg/3 Ml Nebu IH Q3HRT PRN Shortness Of Breath Famotidine 20 mg 08/22/21 10:00 08/22/21 22:31 Famotidine 20 Mg/2 Ml Inj IV 20 mg BID GLENIS Administration Heparin Sodium (Porcine) 5,000 unit 08/22/21 10:00 08/22/21 22:31 Heparin 5,000 Unit/1 Ml Vial SUB-Q 5,000 unit Q12HR GLENIS Administration Hydromorphone HCl 0.5 mg 08/22/21 06:12 Hydromorphone 1 Mg/1 Ml Inj IV Q3H PRN Pain , Severe (7-10) Dextrose/Sodium Chloride 1,000 mls @ 100 mls/hr 08/22/21 07:00 08/23/21 05:53 D5/0.45ns IV 100 mls/hr DIRECT GLENIS Administration Piperacillin Sod/Tazobactam Sod 4.5 gm in 100 mls @ 200 mls/hr 08/22/21 07:00 08/22/21 22:29 Zosyn/Ns 4.5gm/100ml IV 200 mls/hr Q8H GLENIS Administration Protocol Morphine Sulfate 2 mg 08/22/21 06:12 08/22/21 20:05 Morphine 2 Mg/1 Ml Inj IV 2 mg Q4H PRN Administration Pain, Moderate (4-6) Ondansetron HCl 4 mg 08/22/21 06:12 Ondansetron 4 Mg/2 Ml Inj IV Q8H PRN Nausea And Vomiting Sodium Chloride 10 ml 08/22/21 10:00 08/22/21 22:31 Sodium Chloride 0.9% 10 Ml Flush Syringe IV 10 ml BID GLENIS Administration Sodium Chloride 10 ml 08/22/21 06:12 Sodium Chloride 0.9% 10 Ml Flush Syringe IV PRN PRN LINE FLUSH
[2021-08-23 09:09] LABS: Basophils % (Auto) 0.5 % (0.0-1.8); Eosinophils # (Auto) 0.5 K/mm3 (0.0-0.4); Eosinophils % (Auto) 9.9 % (0.0-4.3); Hematocrit 45.7 % (35.5-45.6); Hemoglobin 14.9 gm/dl (11.8-15.2); Lymphocytes % (Auto) 37.8 % (13.4-35.0); Mean Corpuscular HGB Conc 33 % (32-34); Mean Corpuscular Volume 90 fl (84-94); Monocytes # (Auto) 0.7 K/mm3 (0.0-0.8); Monocytes % (Auto) 13.2 % (0.0-7.3); Platelet Count 162 K/mm3 (140-440); Red Blood Count 5.06 M/mm3 (3.65-5.03); Red Cell Distribution Width 15.4 % (13.2-15.2)
--- NOTE | 2021-08-23 09:20 | XRay Report ---
ABDOMEN 2 VIEW(S) INDICATION / CLINICAL INFORMATION: ileus vs sbo. COMPARISON: Previous day. FINDINGS: TUBES / LINES: None. BOWEL GAS PATTERN: Distended small bowel with air-fluid levels remains. No free air. ADDITIONAL FINDINGS: No significant additional findings. IMPRESSION: Persistent distended small bowel with air-fluid levels worrisome for small bowel obstruct ion. Signer Name: Eddie Low MD Signed: 08/23/2021 9:16 AM Workstation Name: [id number]
[2021-08-23 09:25] LABS: BUN/Creatinine Ratio 17; Blood Urea Nitrogen 19 mg/dL (9-20); Calcium 8.9 mg/dL (8.4-10.2); Hemolysis Index 4
[2021-08-23] MEDS: FAMOTIDINE 20 MG/2 ML INJ IV SCH ×2 (12:05→21:46)
[2021-08-23] MEDS: PIPERACIL/TAZOBACTA 4.5/NS 100 4.5 GM/100 ML VIAL IV SCH ×5 (12:05→23:07)
[2021-08-23] MEDS: HEPARIN 5,000 UNIT/1 ML VIAL SUB-Q SCH ×2 (12:06→21:44)
[2021-08-23] MEDS: MORPHINE 2 MG/1 ML INJ IV PRN ×2 (13:01→15:22)
--- NOTE | 2021-08-23 18:05 | Progress Note ---
Assessment and Plan - Patient Problems (1) Paralytic ileus Current Visit: Yes Status: Acute Plan to address problem: 1) CLD 2) AXR, CBC and BMP in the am Subjective Date of service: 08/23/21 Patient Reports: Positive: no new complaints, feels better, pain is less, flatus, bowel movement. Negative: nausea, vomiting Objective Vital Signs - 12hr 08/23/21 08/23/21 10:00 14:42 O2 Sat by Pulse 98 99 Oximetry - Abdomen PM_[id number] 4, PM_46_[id number] 6, PM_46_[id number] 8 Hernia: none - Labs 08/23/21 06:51 08/23/21 06:51 Diabetes panel 08/23/21 Range/Units 06:51 Sodium 142 (137-145) mmol/L Potassium 3.9 (3.6-5.0) mmol/L Chloride 106.1 (98-107) mmol/L Carbon Dioxide 25 (22-30) mmol/L BUN 19 (9-20) mg/dL Creatinine 1.1 (0.8-1.3) mg/dL Glucose 90 (75-100) mg/dL Calcium 8.9 (8.4-10.2) mg/dL Calcium panel 08/23/21 Range/Units 06:51 Calcium 8.9 (8.4-10.2) mg/dL Pituitary panel 08/23/21 Range/Units 06:51 Sodium 142 (137-145) mmol/L Potassium 3.9 (3.6-5.0) mmol/L Chloride 106.1 (98-107) mmol/L Carbon Dioxide 25 (22-30) mmol/L BUN 19 (9-20) mg/dL Creatinine 1.1 (0.8-1.3) mg/dL Glucose 90 (75-100) mg/dL Calcium 8.9 (8.4-10.2) mg/dL Adrenal panel 08/23/21 Range/Units 06:51 Sodium 142 (137-145) mmol/L Potassium 3.9 (3.6-5.0) mmol/L Chloride 106.1 (98-107) mmol/L Carbon Dioxide 25 (22-30) mmol/L BUN 19 (9-20) mg/dL Creatinine 1.1 (0.8-1.3) mg/dL Glucose 90 (75-100) mg/dL Calcium 8.9 (8.4-10.2) mg/dL - Imaging Abdominal x-ray: report reviewed, image reviewed
[2021-08-24] MEDS: PIPERACIL/TAZOBACTA 4.5/NS 100 4.5 GM/100 ML VIAL IV SCH ×3 (06:05→22:28)
[2021-08-24 06:45] LABS: Basophils % (Auto) 0.4 % (0.0-1.8); Eosinophils # (Auto) 0.4 K/mm3 (0.0-0.4); Eosinophils % (Auto) 6.7 % (0.0-4.3); Hematocrit 44.8 % (35.5-45.6); Hemoglobin 14.8 gm/dl (11.8-15.2); Lymphocytes # (Auto) 2.5 K/mm3 (1.2-5.4); Lymphocytes % (Auto) 44.9 % (13.4-35.0); Mean Corpuscular HGB Conc 33 % (32-34); Mean Corpuscular Volume 90 fl (84-94); Monocytes # (Auto) 0.6 K/mm3 (0.0-0.8); Monocytes % (Auto) 11.2 % (0.0-7.3); Platelet Count 166 K/mm3 (140-440); Red Blood Count 5.01 M/mm3 (3.65-5.03); Red Cell Distribution Width 14.5 % (13.2-15.2)
[2021-08-24 07:06] LABS: BUN/Creatinine Ratio 11; Blood Urea Nitrogen 13 mg/dL (9-20); Calcium 8.6 mg/dL (8.4-10.2); Hemolysis Index 3
--- NOTE | 2021-08-24 08:56 | Progress Note ---
Assessment and Plan Assessment and plan: Small bowel obstruction. Lactic acidosis. Resolved Urinary tract infection. Abdominal pain. Resolved Nausea and vomiting. Resolved. Obesity. 08/24/2021. Surgery advance the patient's diet to clear liquid diet which he has tolerated. Continue to advance diet per surgery recommendations. Abdominal pain, nausea and vomiting resolved. Await follow-up KUB today. Continue IV antibiotics for? UTI. Urinalysis reveals less than 1 WBC. Blood cultures with no growth x24 hours. Urine culture pending. History Interval history: No new issues overnight Hospitalist Physical - Constitutional Vitals: Temp Pulse Resp BP Pulse Ox 98.9 F 59 L 16 101/78 99 08/24/21 04:29 08/24/21 04:29 08/24/21 04:29 08/24/21 04:29 08/24/21 04:29 General appearance: Present: no acute distress, well-nourished - EENT Eyes: Present: PERRL, EOM intact ENT: hearing intact, clear oral mucosa, dentition normal - Neck Neck: Present: supple, normal ROM - Respiratory Respiratory effort: normal Respiratory: bilateral: CTA - Cardiovascular Rhythm: regular Heart Sounds: Present: S1 & S2. Absent: gallop, rub - Extremities Extremities: no ischemia, No edema, Full ROM - Abdominal General gastrointestinal: soft, non-tender, non-distended, normal bowel sounds - Integumentary Integumentary: Present: clear, warm, dry - Neurologic Neurologic: CNII-XII intact, moves all extremities Results - Labs CBC & Chem 7: 08/24/21 06:34 08/24/21 06:34 Labs: Laboratory Last Values WBC 5.6 K/mm3 (4.5-11.0) 08/24/21 06:34 RBC 5.01 M/mm3 (3.65-5.03) 08/24/21 06:34 Hgb 14.8 gm/dl (11.8-15.2) 08/24/21 06:34 Hct 44.8 % (35.5-45.6) 08/24/21 06:34 MCV 90 fl (84-94) 08/24/21 06:34 MCH 30 pg (28-32) 08/24/21 06:34 MCHC 33 % (32-34) 08/24/21 06:34 RDW 14.5 % (13.2-15.2) 08/24/21 06:34 Plt Count 166 K/mm3 (140-440) 08/24/21 06:34 Lymph % (Auto) 44.9 % (13.4-35.0) H 08/24/21 06:34 [place] % (Auto) 11.2 % (0.0-7.3) H 08/24/21 06:34 Eos % (Auto) 6.7 % (0.0-4.3) H 08/24/21 06:34 Baso % (Auto) 0.4 % (0.0-1.8) 08/24/21 06:34 Lymph # (Auto) 2.5 K/mm3 (1.2-5.4) 08/24/21 06:34 [place] # (Auto) 0.6 K/mm3 (0.0-0.8) 08/24/21 06:34 Eos # (Auto) 0.4 K/mm3 (0.0-0.4) 08/24/21 06:34 Baso # (Auto) 0.0 K/mm3 (0.0-0.1) 08/24/21 06:34 Seg Neutrophils % 36.8 % (40.0-70.0) L 08/24/21 06:34 Seg Neutrophils # 2.1 K/mm3 (1.8-7.7) 08/24/21 06:34 Sodium 139 mmol/L (137-145) 08/24/21 06:34 Potassium 3.9 mmol/L (3.6-5.0) 08/24/21 06:34 Chloride 103.5 mmol/L (98-107) 08/24/21 06:34 Carbon Dioxide 25 mmol/L (22-30) 08/24/21 06:34 Anion Gap 14 mmol/L 08/24/21 06:34 BUN 13 mg/dL (9-20) 08/24/21 06:34 Creatinine 1.2 mg/dL (0.8-1.3) 08/24/21 06:34 Estimated GFR > 60 ml/min 08/24/21 06:34 BUN/Creatinine Ratio 11 % 08/24/21 06:34 Glucose 91 mg/dL (75-100) 08/24/21 06:34 Lactic Acid 1.00 mmol/L (0.7-2.0) 08/22/21 06:27 Calcium 8.6 mg/dL (8.4-10.2) 08/24/21 06:34 Total Bilirubin 0.70 mg/dL (0.1-1.2) 08/22/21 00:03 AST 24 units/L (5-40) 08/22/21 00:03 ALT 23 units/L (7-56) 08/22/21 00:03 Alkaline Phosphatase 87 units/L (35-129) 08/22/21 00:03 Total Protein 8.0 g/dL (6.3-8.2) 08/22/21 00:03 Albumin 4.4 g/dL (3.9-5) 08/22/21 00:03 Albumin/Globulin Ratio 1.2 % 08/22/21 00:03 Lipase 15 units/L (13-60) 08/22/21 01:29 Urine Color Yellow (Yellow) 08/22/21 Unknown Urine Turbidity Clear (Clear) 08/22/21 Unknown Urine pH 9.0 (5.0-7.0) H 08/22/21 Unknown Ur Specific [place] 1.027 (1.003-1.030) 08/22/21 Unknown Urine Protein 100 mg/dl mg/dL (Negative) 08/22/21 Unknown Urine Glucose (UA) Neg mg/dL (Negative) 08/22/21 Unknown Urine Ketones 20 mg/dL (Negative) 08/22/21 Unknown Urine Blood Neg (Negative) 08/22/21 Unknown Urine Nitrite Neg (Negative) 08/22/21 Unknown Urine Bilirubin Neg (Negative) 08/22/21 Unknown Urine Urobilinogen < 2.0 mg/dL (<2.0) 08/22/21 Unknown Ur Leukocyte Esterase Neg (Negative) 08/22/21 Unknown Urine WBC (Auto) < 1.0 /HPF (0.0-6.0) 08/22/21 Unknown Urine RBC (Auto) 27.0 /HPF (0.0-6.0) 08/22/21 Unknown U Epithel Cells (Auto) < 1.0 /HPF (0-13.0) 08/22/21 Unknown Urine Bacteria (Auto) 1+ /HPF (Negative) 08/22/21 Unknown Urine Mucus 1+ /HPF 08/22/21 Unknown Microbiology: Microbiology 08/22/21 01:37 Peripheral/Venous Blood Culture - Preliminary NO GROWTH AFTER 24 HOURS 08/22/21 01:37 Peripheral/Venous Blood Culture - Preliminary NO GROWTH AFTER 24 HOURS Nguyễn/IV: Voiding Method Toilet Active Medications - Current Medications Current Medications: Generic Name Dose Route Start Last Admin Trade Name Freq PRN Reason Stop Dose Admin Acetaminophen 650 mg 08/22/21 06:12 Acetaminophen 325 Mg Tab PO Q4H PRN Pain MILD(1-3)/Fever >100.5/MCLEOD Albuterol 2.5 mg 08/22/21 06:12 Albuterol 2.5 Mg/3 Ml Nebu IH Q3HRT PRN Shortness Of Breath Famotidine 20 mg 08/24/21 10:00 Famotidine 20 Mg Tab PO BID GLENIS Heparin Sodium (Porcine) 5,000 unit 08/22/21 10:00 08/23/21 21:44 Heparin 5,000 Unit/1 Ml Vial SUB-Q 5,000 unit Q12HR GLENIS Administration Hydromorphone HCl 0.5 mg 08/22/21 06:12 Hydromorphone 1 Mg/1 Ml Inj IV Q3H PRN Pain , Severe (7-10) Dextrose/Sodium Chloride 1,000 mls @ 100 mls/hr 08/22/21 07:00 08/23/21 15:19 D5/0.45ns IV 100 mls/hr DIRECT GLENIS Administration Piperacillin Sod/Tazobactam Sod 4.5 gm in 100 mls @ 200 mls/hr 08/22/21 07:00 08/24/21 06:05 Zosyn/Ns 4.5gm/100ml IV 08/26/21 06:59 200 mls/hr Q8H GLENIS Administration Protocol Morphine Sulfate 2 mg 08/22/21 06:12 08/23/21 15:22 Morphine 2 Mg/1 Ml Inj IV 2 mg Q4H PRN Administration Pain, Moderate (4-6) Ondansetron HCl 4 mg 08/22/21 06:12 Ondansetron 4 Mg/2 Ml Inj IV Q8H PRN Nausea And Vomiting Sodium Chloride 10 ml 08/22/21 10:00 08/23/21 23:03 Sodium Chloride 0.9% 10 Ml Flush Syringe IV 10 ml BID GLENIS Administration Sodium Chloride 10 ml 08/22/21 06:12 Sodium Chloride 0.9% 10 Ml Flush Syringe IV PRN PRN LINE FLUSH
[2021-08-24] MEDS: HEPARIN 5,000 UNIT/1 ML VIAL SUB-Q SCH ×2 (10:12→21:33)
[2021-08-24] MEDS: FAMOTIDINE 20 MG TAB PO SCH ×2 (10:13→21:33)
--- NOTE | 2021-08-24 10:37 | Progress Note ---
Assessment and Plan - Patient Problems (1) Paralytic ileus Current Visit: Yes Status: Acute Plan to address problem: 1) Clinically, pt looks great but AXR are still significantly abnormal. Will check SBFT. Subjective Date of service: 08/24/21 Patient Reports: Positive: no new complaints, pain is less, tolerating liquids well, flatus, bowel movement. Negative: nausea, vomiting Objective Vital Signs - 12hr 08/24/21 04:29 Temperature 98.9 F Pulse Rate 59 L Respiratory 16 Rate Blood Pressure 101/78 O2 Sat by Pulse 99 Oximetry - Abdomen soft, not tender, bowel sounds hypoactive, not distended, not rebound, not guarding Hernia: none - Labs 08/24/21 06:34 08/24/21 06:34 Diabetes panel 08/24/21 Range/Units 06:34 Sodium 139 (137-145) mmol/L Potassium 3.9 (3.6-5.0) mmol/L Chloride 103.5 (98-107) mmol/L Carbon Dioxide 25 (22-30) mmol/L BUN 13 (9-20) mg/dL Creatinine 1.2 (0.8-1.3) mg/dL Glucose 91 (75-100) mg/dL Calcium 8.6 (8.4-10.2) mg/dL Calcium panel 08/24/21 Range/Units 06:34 Calcium 8.6 (8.4-10.2) mg/dL Pituitary panel 08/24/21 Range/Units 06:34 Sodium 139 (137-145) mmol/L Potassium 3.9 (3.6-5.0) mmol/L Chloride 103.5 (98-107) mmol/L Carbon Dioxide 25 (22-30) mmol/L BUN 13 (9-20) mg/dL Creatinine 1.2 (0.8-1.3) mg/dL Glucose 91 (75-100) mg/dL Calcium 8.6 (8.4-10.2) mg/dL Adrenal panel 08/24/21 Range/Units 06:34 Sodium 139 (137-145) mmol/L Potassium 3.9 (3.6-5.0) mmol/L Chloride 103.5 (98-107) mmol/L Carbon Dioxide 25 (22-30) mmol/L BUN 13 (9-20) mg/dL Creatinine 1.2 (0.8-1.3) mg/dL Glucose 91 (75-100) mg/dL Calcium 8.6 (8.4-10.2) mg/dL - Imaging Abdominal x-ray: image reviewed
--- NOTE | 2021-08-24 10:44 | XRay Report ---
ABDOMEN 2 VIEWS INDICATION / CLINICAL INFORMATION: sbo vs ileus. COMPARISON: 08/23/2021 FINDINGS: TUBES / LINES: None. BOWEL GAS PATTERN: There are slightly less gas in the bowel compared to yesterday's exam. There are a ir-fluid levels persist. FREE AIR / EXTRALUMINAL GAS: None seen. ADDITIONAL FINDINGS: No significant additional findings. CHEST: Visualized chest shows no significant abnormality. IMPRESSION: 1. Mild improvement. Signer Name: Devyn Roy MD Signed: 08/24/2021 10:40 AM Workstation Name: [id number]
--- NOTE | 2021-08-24 16:00 | Fluoroscopy Report ---
SMALL BOWEL FOLLOW-THROUGH HISTORY: sbo vs ileus. TECHNIQUE: Single contrast barium technique utilized to evaluate the small bowel. FINDINGS: Small bowel transit time was 3 hours which is lightly delayed. Small bowel loops througho ut the abdomen are borderline dilated throughout. No transition point is detected. The terminal ileu m is normal in appearance. IMPRESSION: Probable ileus. FLUOROSCOPIC TIME: 0 minutes NUMBER OF FLUOROSCOPIC IMAGES: 0 Signer Name: Keyshawn Linares Jr, MD Signed: 08/24/2021 3:56 PM Workstation Name: [id number]
[2021-08-24] MEDS: MORPHINE 2 MG/1 ML INJ IV PRN (16:09)
[2021-08-25] MEDS: D5W/0.45% NACL 1,000 ML IV SCH (05:04)
[2021-08-25] MEDS: PIPERACIL/TAZOBACTA 4.5/NS 100 4.5 GM/100 ML VIAL IV SCH (06:14)
[2021-08-25 06:16] LABS: Basophils % (Auto) 0.5 % (0.0-1.8); Eosinophils # (Auto) 0.3 K/mm3 (0.0-0.4); Hematocrit 47.1 % (35.5-45.6); Hemoglobin 15.5 gm/dl (11.8-15.2); Lymphocytes # (Auto) 2.4 K/mm3 (1.2-5.4); Lymphocytes % (Auto) 36.8 % (13.4-35.0); Mean Corpuscular HGB Conc 33 % (32-34); Mean Corpuscular Volume 89 fl (84-94); Monocytes # (Auto) 0.6 K/mm3 (0.0-0.8); Platelet Count 179 K/mm3 (140-440); Red Cell Distribution Width 14.6 % (13.2-15.2)
[2021-08-25 07:51] LABS: BUN/Creatinine Ratio 11; Blood Urea Nitrogen 11 mg/dL (9-20); Calcium 9.4 mg/dL (8.4-10.2); Hemolysis Index 3
--- NOTE | 2021-08-25 09:07 | Progress Note ---
Assessment and Plan Assessment and plan: Small bowel obstruction. Lactic acidosis. Resolved Urinary tract infection. Abdominal pain. Resolved Nausea and vomiting. Resolved. Obesity. 08/24/2021. Surgery advance the patient's diet to clear liquid diet which he has tolerated. Continue to advance diet per surgery recommendations. Abdominal pain, nausea and vomiting resolved. Await follow-up KUB today. Continue IV antibiotics for? UTI. Urinalysis reveals less than 1 WBC. Blood cultures with no growth x24 hours. Urine culture pending. History Interval history: No new issues overnight Hospitalist Physical - Constitutional Vitals: Temp Pulse Resp BP Pulse Ox 99.0 F 50 L 20 118/73 96 08/25/21 05:05 08/25/21 05:05 08/25/21 05:05 08/25/21 05:05 08/25/21 05:05 General appearance: Present: no acute distress, well-nourished - EENT Eyes: Present: PERRL, EOM intact ENT: hearing intact, clear oral mucosa, dentition normal - Neck Neck: Present: supple, normal ROM - Respiratory Respiratory effort: normal Respiratory: bilateral: CTA - Cardiovascular Rhythm: regular Heart Sounds: Present: S1 & S2. Absent: gallop, rub - Extremities Extremities: no ischemia, No edema, Full ROM - Abdominal General gastrointestinal: soft, non-tender, non-distended, normal bowel sounds - Integumentary Integumentary: Present: clear, warm, dry - Neurologic Neurologic: CNII-XII intact, moves all extremities Results - Labs CBC & Chem 7: 08/25/21 05:58 08/25/21 05:58 Labs: Laboratory Last Values WBC 6.5 K/mm3 (4.5-11.0) 08/25/21 05:58 RBC 5.30 M/mm3 (3.65-5.03) H 08/25/21 05:58 Hgb 15.5 gm/dl (11.8-15.2) H 08/25/21 05:58 Hct 47.1 % (35.5-45.6) H 08/25/21 05:58 MCV 89 fl (84-94) 08/25/21 05:58 MCH 29 pg (28-32) 08/25/21 05:58 MCHC 33 % (32-34) 08/25/21 05:58 RDW 14.6 % (13.2-15.2) 08/25/21 05:58 Plt Count 179 K/mm3 (140-440) 08/25/21 05:58 Lymph % (Auto) 36.8 % (13.4-35.0) H 08/25/21 05:58 Johnson % (Auto) 10.0 % (0.0-7.3) H 08/25/21 05:58 Eos % (Auto) 4.0 % (0.0-4.3) 08/25/21 05:58 Baso % (Auto) 0.5 % (0.0-1.8) 08/25/21 05:58 Lymph # (Auto) 2.4 K/mm3 (1.2-5.4) 08/25/21 05:58 Johnson # (Auto) 0.6 K/mm3 (0.0-0.8) 08/25/21 05:58 Eos # (Auto) 0.3 K/mm3 (0.0-0.4) 08/25/21 05:58 Baso # (Auto) 0.0 K/mm3 (0.0-0.1) 08/25/21 05:58 Seg Neutrophils % 48.7 % (40.0-70.0) 08/25/21 05:58 Seg Neutrophils # 3.1 K/mm3 (1.8-7.7) 08/25/21 05:58 Sodium 141 mmol/L (137-145) 08/25/21 05:58 Potassium 3.6 mmol/L (3.6-5.0) 08/25/21 05:58 Chloride 107.1 mmol/L (98-107) H 08/25/21 05:58 Carbon Dioxide 23 mmol/L (22-30) 08/25/21 05:58 Anion Gap 15 mmol/L 08/25/21 05:58 BUN 11 mg/dL (9-20) 08/25/21 05:58 Creatinine 1.0 mg/dL (0.8-1.3) 08/25/21 05:58 Estimated GFR > 60 ml/min 08/25/21 05:58 BUN/Creatinine Ratio 11 % 08/25/21 05:58 Glucose 93 mg/dL (75-100) 08/25/21 05:58 Lactic Acid 1.00 mmol/L (0.7-2.0) 08/22/21 06:27 Calcium 9.4 mg/dL (8.4-10.2) 08/25/21 05:58 Magnesium 2.00 mg/dL (1.7-2.3) 08/25/21 05:58 Total Bilirubin 0.70 mg/dL (0.1-1.2) 08/22/21 00:03 AST 24 units/L (5-40) 08/22/21 00:03 ALT 23 units/L (7-56) 08/22/21 00:03 Alkaline Phosphatase 87 units/L (35-129) 08/22/21 00:03 Total Protein 8.0 g/dL (6.3-8.2) 08/22/21 00:03 Albumin 4.4 g/dL (3.9-5) 08/22/21 00:03 Albumin/Globulin Ratio 1.2 % 08/22/21 00:03 Lipase 15 units/L (13-60) 08/22/21 01:29 TSH 1.110 mlU/mL (0.270-4.200) 08/25/21 05:58 Urine Color Yellow (Yellow) 08/22/21 Unknown Urine Turbidity Clear (Clear) 08/22/21 Unknown Urine pH 9.0 (5.0-7.0) H 08/22/21 Unknown Ur Specific [place] 1.027 (1.003-1.030) 08/22/21 Unknown Urine Protein 100 mg/dl mg/dL (Negative) 08/22/21 Unknown Urine Glucose (UA) Neg mg/dL (Negative) 08/22/21 Unknown Urine Ketones 20 mg/dL (Negative) 08/22/21 Unknown Urine Blood Neg (Negative) 08/22/21 Unknown Urine Nitrite Neg (Negative) 08/22/21 Unknown Urine Bilirubin Neg (Negative) 08/22/21 Unknown Urine Urobilinogen < 2.0 mg/dL (<2.0) 08/22/21 Unknown Ur Leukocyte Esterase Neg (Negative) 08/22/21 Unknown Urine WBC (Auto) < 1.0 /HPF (0.0-6.0) 08/22/21 Unknown Urine RBC (Auto) 27.0 /HPF (0.0-6.0) 08/22/21 Unknown U Epithel Cells (Auto) < 1.0 /HPF (0-13.0) 08/22/21 Unknown Urine Bacteria (Auto) 1+ /HPF (Negative) 08/22/21 Unknown Urine Mucus 1+ /HPF 08/22/21 Unknown Microbiology: Microbiology 08/22/21 01:37 Peripheral/Venous Blood Culture - Preliminary NO GROWTH AFTER 48 HOURS 08/22/21 01:37 Peripheral/Venous Blood Culture - Preliminary NO GROWTH AFTER 48 HOURS 08/23/21 Unknown Urine,Clean Catch Urine Culture - Preliminary NO GROWTH AFTER 24 HOURS Nguyễn/IV: Voiding Method Toilet Active Medications - Current Medications Current Medications: Generic Name Dose Route Start Last Admin Trade Name Freq PRN Reason Stop Dose Admin Acetaminophen 650 mg 08/22/21 06:12 Acetaminophen 325 Mg Tab PO Q4H PRN Pain MILD(1-3)/Fever >100.5/MCLEOD Albuterol 2.5 mg 08/22/21 06:12 Albuterol 2.5 Mg/3 Ml Nebu IH Q3HRT PRN Shortness Of Breath Famotidine 20 mg 08/24/21 10:00 08/24/21 21:33 Famotidine 20 Mg Tab PO 20 mg BID GLENIS Administration Heparin Sodium (Porcine) 5,000 unit 08/22/21 10:00 08/24/21 21:33 Heparin 5,000 Unit/1 Ml Vial SUB-Q 5,000 unit Q12HR GLENIS Administration Hydromorphone HCl 0.5 mg 08/22/21 06:12 Hydromorphone 1 Mg/1 Ml Inj IV Q3H PRN Pain , Severe (7-10) Dextrose/Sodium Chloride 1,000 mls @ 100 mls/hr 08/22/21 07:00 08/25/21 05:04 D5/0.45ns IV 100 mls/hr DIRECT GLENIS Administration Piperacillin Sod/Tazobactam Sod 4.5 gm in 100 mls @ 200 mls/hr 08/22/21 07:00 08/25/21 06:14 Zosyn/Ns 4.5gm/100ml IV 08/26/21 06:59 200 mls/hr Q8H GLENIS Administration Protocol Morphine Sulfate 2 mg 08/22/21 06:12 08/24/21 16:09 Morphine 2 Mg/1 Ml Inj IV 2 mg Q4H PRN Administration Pain, Moderate (4-6) Ondansetron HCl 4 mg 08/22/21 06:12 Ondansetron 4 Mg/2 Ml Inj IV Q8H PRN Nausea And Vomiting Sodium Chloride 10 ml 08/22/21 10:00 08/24/21 21:38 Sodium Chloride 0.9% 10 Ml Flush Syringe IV 10 ml BID GLENIS Administration Sodium Chloride 10 ml 08/22/21 06:12 Sodium Chloride 0.9% 10 Ml Flush Syringe IV PRN PRN LINE FLUSH
[2021-08-25] MEDS: FAMOTIDINE 20 MG TAB PO SCH (09:38)
[2021-08-25] MEDS: HEPARIN 5,000 UNIT/1 ML VIAL SUB-Q SCH (09:38)
--- NOTE | 2021-08-25 10:53 | Progress Note ---
Assessment and Plan - Patient Problems (1) Paralytic ileus Current Visit: Yes Status: Acute Plan to address problem: 1) Can be discharged from my perspective on a high fiber diet with lots of water and exercise. Should also avoid red meats and cheeses. 2) F/u in my office in 2 weeks. Subjective Date of service: 08/25/21 Patient Reports: Positive: no new complaints, feels better, tolerating liquids well, flatus, bowel movement, afebrile. Negative: nausea, vomiting Objective Vital Signs - 12hr 08/25/21 05:05 Temperature 99.0 F Pulse Rate 50 L Respiratory 20 Rate Blood Pressure 118/73 O2 Sat by Pulse 96 Oximetry - Abdomen PM_46_[id number] 4, PM_46_EXABD1 6, PM_46_EXABD1 8 Hernia: none - Labs 08/25/21 05:58 08/25/21 05:58 Diabetes panel 08/25/21 Range/Units 05:58 Sodium 141 (137-145) mmol/L Potassium 3.6 (3.6-5.0) mmol/L Chloride 107.1 H (98-107) mmol/L Carbon Dioxide 23 (22-30) mmol/L BUN 11 (9-20) mg/dL Creatinine 1.0 (0.8-1.3) mg/dL Glucose 93 (75-100) mg/dL Calcium 9.4 (8.4-10.2) mg/dL Thyroid panel 08/25/21 Range/Units 05:58 TSH 1.110 (0.270-4.200) mlU/mL Calcium panel 08/25/21 Range/Units 05:58 Calcium 9.4 (8.4-10.2) mg/dL Pituitary panel 08/25/21 08/25/21 Range/Units 05:58 05:58 Sodium 141 (137-145) mmol/L Potassium 3.6 (3.6-5.0) mmol/L Chloride 107.1 H (98-107) mmol/L Carbon Dioxide 23 (22-30) mmol/L BUN 11 (9-20) mg/dL Creatinine 1.0 (0.8-1.3) mg/dL Glucose 93 (75-100) mg/dL Calcium 9.4 (8.4-10.2) mg/dL TSH 1.110 (0.270-4.200) mlU/mL Adrenal panel 08/25/21 Range/Units 05:58 Sodium 141 (137-145) mmol/L Potassium 3.6 (3.6-5.0) mmol/L Chloride 107.1 H (98-107) mmol/L Carbon Dioxide 23 (22-30) mmol/L BUN 11 (9-20) mg/dL Creatinine 1.0 (0.8-1.3) mg/dL Glucose 93 (75-100) mg/dL Calcium 9.4 (8.4-10.2) mg/dL - Imaging Additional Studies: SBFT noted.
--- NOTE | 2021-08-25 12:01 | Discharge Summary ---
Providers - Providers Date of Admission: 08/22/21 06:13 Date of discharge: 08/25/21 Attending physician: MAYTE LESTER 08/22/21 06:10 Consult to Physician [CONS] Urgent Comment: Dr. Smith spoke with Dr. Rice @ 0601 Consulting Provider: JUSTUS RICE Physician Instructions: Reason For Exam: High-grade partial small bowel obstruction 08/22/21 06:12 Consult to Physician [CONS] Routine Comment: Dr. Smith spoke with Dr. Rice @ 0601 Consulting Provider: JUSTUS RICE Physician Instructions: Reason For Exam: sbo Primary care physician: VAULT MECHANIC Hospitalization Reason for admission: Abd pain Condition: Stable Hospital course: 51 yo male with 24 hour h/o crampy, lower abdominal pain, nausea and vomiting. No prior abd surgery or h/o hernias. No melena, hematochezia or diarrhea. He was "mildly" constipated. The patient was admitted with diagnosis below: Small bowel obstruction. Lactic acidosis. Resolved Urinary tract infection. Abdominal pain. Resolved Nausea and vomiting. Resolved. Obesity. 08/24/2021. Since admission, his abdominal pain, nausea and vomiting have improved and he has had several loose bm's. Surgery advanced the patient's diet to clear liquid diet which he has tolerated. Continue to advance diet per surgery recommendations. Abdominal pain, nausea and vomiting resolved. Await follow-up KUB today. Continue IV antibiotics for? UTI. Urinalysis reveals less than 1 WBC. Blood cultures with no growth x24 hours. Urine culture pending. 08/25/2021. Surgery reported that the patient can be discharged from my perspective on a high fiber diet with lots of water and exercise. Should also avoid red meats and cheeses. Dedicated discharge time 32 minutes Disposition: 30 STILL A PATIENT Final Discharge Diagnosis (Prints w/discharge instructions): Paralytic ileus, SBO, obesity, nausea and vomiting Core Measure Documentation - Palliative Care Palliative Care/ Comfort Measures: Not Applicable - Core Measures Any of the following diagnoses?: none Exam - Constitutional Vitals: Temp Pulse Resp BP Pulse Ox 99.0 F 50 L 20 118/73 96 08/25/21 05:05 08/25/21 05:05 08/25/21 05:05 08/25/21 05:05 08/25/21 05:05 General appearance: Present: no acute distress, well-nourished - EENT Eyes: Present: PERRL ENT: hearing intact, clear oral mucosa - Neck Neck: Present: supple, normal ROM - Respiratory Respiratory effort: normal Respiratory: bilateral: CTA - Cardiovascular Heart Sounds: Present: S1 & S2. Absent: rub, click - Extremities Extremities: pulses symmetrical, No edema Peripheral Pulses: within normal limits - Abdominal General gastrointestinal: Present: soft, non-tender, non-distended, normal bowel sounds Male genitourinary: Present: normal - Integumentary Integumentary: Present: clear, warm, dry - Musculoskeletal Musculoskeletal: gait normal, strength equal bilaterally - Psychiatric Psychiatric: appropriate mood/affect, intact judgment & insight - Neurologic Neurologic: CNII-XII intact, moves all extremities Plan Activity: advance as tolerated Weight Bearing Status: Weight Bear as Tolerated Diet: other (High-fiber) Follow up with: PRIMARY CARE, [Primary Care Provider] - 3-5 Days JUSTUS RICE MD [Staff Physician] - 14 Days Prescriptions: Ondansetron (Nf) [Zofran TAB] 4 mg PO Q8HR PRN #10 tablet PRN Reason: Nausea And Vomiting
[2021-08-25 12:23] VITALS: BP 134/83
== END 2021-08-25 13:44 | disposition home or self-care (01) | DRG 389 ==
LOC: ED 22:49 → 4A 08-22 06:13 → 3A 08-22 06:59
PROVIDERS: ADMIT Hospitalist; ATTEND Hospitalist
PROC: 0D9670Z Drainage of Stomach with Drainage Device, Via Natural or Artificial Opening (ICD-10-PCS; principal; 2021-08-22)
DX: K56.600 Partial intestinal obstruction, unspecified as to cause (principal); E87.2 Acidosis; N39.0 Urinary tract infection, site not specified; K56.0 Paralytic ileus; R11.2 Nausea with vomiting, unspecified; R10.9 Unspecified abdominal pain; E66.9 Obesity, unspecified; Z68.31 Body mass index [BMI] 31.0-31.9, adult
CPT/HCPCS: 36415; 74018; 74019; 74177; 74248; 80048; 80053; 81001; 82140; 83690; 83735; 84443; 85025; 87040; 87086; G0378; J3490; J7070; Q0162; J1170; J1200; J1644; J2270; J2405; J2543; J2765; J7030; Q9963; Q9967